=== PATIENT | male | born 1935 | race Caucasian/White ===

== ENCOUNTER 2016-10-06 08:58 | Day surgery (SDC) | payer MEDICARE, OTHER ==
[~2016-10-06 08:58] MED LIST: Lactated Ringers 1,000 ML IV SCH
[2016-10-06] MEDS ORDERED: Albuterol/Ipratropium 3.0-0.5 MG/3 ML Neb Soln NEB ONE (11:12)
[2016-10-06] MEDS ORDERED: Propofol 200 MG/20 ML SDV ONE (11:26)
[2016-10-06] MEDS ORDERED: fentaNYL 100 MCG/2 ML SDV ONE (11:26)
[2016-10-06 13:45] VITALS: BP 145/61
--- NOTE | 2016-10-09 08:18 | OR ---
PREOPERATIVE DIAGNOSIS: Rectal bleeding. POSTOPERATIVE DIAGNOSIS: Anal mass, removed; multiple colonic polyps, removed; large flat cecal polyp, unable to remove due to size. PROCEDURE PROPOSED: Total flexible colonoscopy. PROCEDURE DONE: Total flexible colonoscopy with multiple polypectomies and biopsies. INDICATION: This is an 81-year-old gentleman, who was found to have some bright red blood per rectum and a feeling of something pushing out with bowel movements and he was referred for colonoscopy, apparently being his first one ever. TECHNIQUE: The patient was brought to endoscopy suite, placed in the left lateral decubitus position. He was sedated with propofol per [employer]. The flexible video colonoscope was then passed transanally and under visualization advanced to the cecum. In the cecal area, he was found to have a fairly large lobulated flat polyp that I felt was too large to remove based on my skill set. I did do biopsies of this lesion and it did not appear malignant. He had a couple small polyps in the vicinity that were removed by cold biopsy forceps. The transverse colon was unremarkable. The descending colon was unremarkable. The sigmoid colon revealed moderate diverticulosis and at about 25 cm from anal verge, there was a moderately large polyp removed by hot snare technique and retrieved with suction. I then went back in with the scope and found a mass just inside the dentate line. There was a friable fungating mass, that I was actually able to remove in 3 pieces and felt that a good flush margin was obtained with mucosa and these 3 pieces were suctioned out and submitted for pathologic examination. This likely was the source of his bleeding. However, we need to rule out possible carcinoma within the polyp, so all the specimens were submitted for pathologic examination. IMPRESSION: 1. Anal fungating polyp removed, likely the source of bleeding. 2. Multiple other colonic polyps removed. 3. Large flat sessile type polyp, unable to remove, but biopsied. PLAN: He will be sent a letter with pathology report and all this. We will have to make decision as to when and how to remove the large flat polyp in the cecum, which could possibly be removed by a GI specialist in [place] and thereby avoid surgery. I would like to await the pathology report and all of this before making that decision. I will be sending him a letter with recommendations. SCM: 10/06/2016 12:41:58 MODL: 10/06/2016 19:32:39 /[id number]
--- NOTE | 2016-10-16 10:47 | LETTER ---
10/13/2016 RE: DESIRAE ROSE : 1935 Dear Desirae: I am please to report to that all of the polyps that were found and removed and biopsied were benign. There was no evidence of any precancer changes or colon cancer present. I am hoping that by removing the large polyp in your rectum that your rectal bleeding has stopped. We still have the large flatish polyp in your cecum that has not been removed yet. I would like to see you in the clinic in approximately 1 month, if you would be willing to make an appointment, so we can further discuss your situation and decide what we should do about the larger polyp in the cecum. You can call the clinic and make an appointment at your convenience or sometime in October or November. Respectfully, TYREL
== END 2016-10-06 13:40 | disposition home or self-care (01) ==
LOC: VM.SDS 08:58
PROVIDERS: ATTEND Surgery
DX: D12.0 Benign neoplasm of cecum (principal); D12.3 Benign neoplasm of transverse colon; D12.6 Benign neoplasm of colon, unspecified; D12.9 Benign neoplasm of anus and anal canal; K57.30 Diverticulosis of large intestine without perforation or abscess without bleeding; I13.0 Hypertensive heart and chronic kidney disease with heart failure and stage 1 through stage 4 chronic kidney disease, or unspecified chronic kidney disease; N18.3 Chronic kidney disease, stage 3 (moderate); I50.32 Chronic diastolic (congestive) heart failure; I25.10 Atherosclerotic heart disease of native coronary artery without angina pectoris; Z79.899 Other long term (current) drug therapy; Z88.8 Allergy status to other drugs, medicaments and biological substances; Z96.652 Presence of left artificial knee joint; Z95.5 Presence of coronary angioplasty implant and graft; I73.9 Peripheral vascular disease, unspecified; Z99.81 Dependence on supplemental oxygen; E55.9 Vitamin D deficiency, unspecified; Z90.49 Acquired absence of other specified parts of digestive tract; Z87.891 Personal history of nicotine dependence
CPT/HCPCS: 45380; 94640; J2704; J3010; J7120; 00810; 88305

== ENCOUNTER 2017-03-08 05:55 | Emergency (ER) | payer MEDICARE, OTHER ==
--- NOTE | 2017-03-08 06:06 | EDM.PDOC ---
ED HPI GENERAL MEDICAL PROBLEM - General Chief Complaint: Genitourinary Problem Stated Complaint: Unable to void Time Seen by Provider: 03/08/17 05:56 Source of Information: Reports: Patient, Family, RN, RN Notes Reviewed History Limitations: Reports: No Limitations - History of Present Illness INITIAL COMMENTS - FREE TEXT/NARRATIVE: Patient presents the emergency room at [facility] complaining of urinary retention. The patient states he last urinated about 11 PM last night. The patient states that his bladder feels very full. The patient has a history of BPH and urinary retention. The patient states that he has some bladder discomfort. The patient denies any overt pain. No fever or chills. Patient denies any back pain or flank pain. The patient denies any UTI symptoms. Onset Date: 03/07/17 Onset Time: 23:00 - Related Data Allergies Allergy/AdvReac Type Severity Reaction Status Date / Time atorvastatin calcium AdvReac Leg Cramps Verified 03/08/17 06:06 [From Lipitor] ezetimibe [From Zetia] AdvReac Leg Cramps Verified 03/08/17 06:06 Home Meds: Home Meds ALPRAZolam [Alprazolam] 0.25 mg PO TID PRN 10/27/15 [History] Albuterol Sulfate [Proair Respiclick] 2 puff IH Q4H PRN 10/27/15 [History] Cholecalciferol (Vitamin D3) [Vitamin D] 2,000 units PO DAILY 10/27/15 [History] Docusate Sodium [Colace] 100 mg PO DAILY PRN 10/27/15 [History] Metoprolol Tartrate [Lopressor] 25 mg PO DAILY 10/27/15 [History] Nitroglycerin [Nitrostat] 0.4 mg SL Q5M PRN 10/27/15 [History] Tamsulosin HCl [Flomax] 0.8 mg PO BEDTIME 10/27/15 [History] Tiotropium [Spiriva HandiHaler] 1 cap INH DAILY 10/27/15 [History] Zolpidem [Ambien] 10 mg PO BEDTIME PRN 10/27/15 [History] amLODIPine [Norvasc] 5 mg PO DAILY 10/27/15 [History] Clopidogrel [Plavix] 75 mg PO DAILY 09/28/16 [History] Hydrocodone/Acetaminophen [[place] 5-325] 1 tab PO Q8H PRN 09/28/16 [History] Latanoprost [Xalatan 0.005% Ophth Soln] 2.5 ml EYEBOTH BEDTIME 09/28/16 [History ] PARoxetine [Paxil] 20 mg PO DAILY 09/28/16 [History] Pantoprazole Sodium [Protonix] 20 mg PO DAILY 09/28/16 [History] Past Medical History HEENT History: Reports: Hard of Hearing Cardiovascular History: Reports: CAD, Heart Failure, High Cholesterol, Hypertension, [place], PVD Other Cardiovascular History: BILATERAL CAROTID ARTERY DISEASE. RIGHT BUNDLE BRANCH BLOCK Respiratory History: Reports: COPD, Other (See Below) Other Respiratory History: EMPHYSEMA Gastrointestinal History: Reports: GERD, Hemorrhoids Other Gastrointestinal History: DYSPEPSIARECTAL BLEEDING Genitourinary History: Reports: BPH, Renal Disease Other Genitourinary History: URINARY RETENTION. ACUTE CYSTITIS WITH HEMATURIA. CALCULUS OF KINDNEY Musculoskeletal History: Reports: Back Pain, Chronic, Neck Pain, Chronic Other Musculoskeletal History: DDD-DEGENERATIVE DISC DISEASE, CERVICAL. BURSITIS LEFT SHOULDER. CERVICAL SPINE STENOSIS. CHRONIC LEFT SHOULDER PAIN Neurological History: Reports: None Psychiatric History: Reports: Anxiety, Depression Other Psychiatric History: INSOMNIA. PAIN MEDICATION AGREEMENT SIGNED Endocrine/Metabolic History: Reports: None Other Endocrine/Metabolic History: HYPERGLYCEMIA Hematologic History: Reports: None Other Hematologic History: VIT D DEFICIENCY Immunologic History: Reports: None Oncologic (Cancer) History: Reports: None Dermatologic History: Reports: None - Past Surgical History HEENT Surgical History: Reports: Cataract Surgery Cardiovascular Surgical History: Reports: Coronary Artery Stent Musculoskeletal Surgical History: Reports: Knee Replacement Social & Family History - Tobacco Use Smoking Status *Q: Former Smoker Years of Tobacco use: 60 Packs/Tins Daily: 1 Used Tobacco, but Quit: Yes Month Tobacco Last Used: 10 months ago Second Hand Smoke Exposure: Yes - Alcohol Use Days Per Week of Alcohol Use: 0 Number of Drinks Per Day: 0 Total Drinks Per Week: 0 - Recreational Drug Use Recreational Drug Use: No Drug Use in Last 12 Months: No ED ROS GENERAL - Review of Systems Review Of Systems: See Below Constitutional: Denies: Fever, Chills, Weakness Respiratory: Denies: Shortness of Breath, Cough Cardiovascular: Denies: Chest Pain, Palpitations GI/Abdominal: Denies: Abdominal Pain, Nausea, Vomiting : Reports: Pain, Urinary Retention Skin: Reports: No Symptoms Neurological: Reports: No Symptoms ED EXAM, RENAL/ - Physical Exam Exam: See Below Exam Limited By: No Limitations General Appearance: Alert, No Apparent Distress Respiratory/Chest: No Respiratory Distress, Lungs Clear, Normal Breath Sounds Cardiovascular: Normal Peripheral Pulses, Regular Rate, Rhythm GI/Abdominal: Normal Bowel Sounds, Soft, Non-Tender (Male) Exam: Deferred Neurological: Alert, Oriented Skin Exam: Warm, Dry, Intact, Normal Color, No Rash Course - Orders/Labs/Meds Orders: Active Orders 24 hr Category Date Time Status Bladder Scan [RC] ONETIME Care 03/08/17 06:11 Active Insert [place] Catheter [Insert Urinary Catheter] [OM.PC] Care 03/08/17 06:15 Ordered Q24H Urinary Catheter Assessment [RC] ASDIRECTED Care 03/08/17 06:08 Active PSA-EIA [REF] Stat Lab 03/08/17 06:19 Received Labs: Laboratory Tests 03/08/17 03/08/17 03/08/17 Range/Units 06:19 06:19 06:48 WBC 9.2 (4.0-10.0) x10^3/uL RBC 3.95 L (4.5-6.0) x10^6/uL Hgb 12.3 L (14.0-18.0) g/dL Hct 37.6 L (40.0-52.0) % MCV 95.2 H (78.0-93.0) fL MCH 31.1 (26.0-32.0) pg MCHC 32.7 (32.0-36.0) g/dL RDW Coeff of Kathleen 14.5 (10.0-15.0) % Plt Count 239 D (130-400) x10^3/uL Neut % (Auto) 73.7 (50.0-80.0) % Lymph % (Auto) 13.4 L (25.0-50.0) % [place] % (Auto) 9.8 (2.0-11.0) % Eos % (Auto) 2.9 (0.0-4.0) % Baso % (Auto) 0.2 (0.2-1.2) % Sodium 139 (136-145) mmol/L Potassium 4.1 (3.5-5.1) mmol/L Chloride 104 (98-107) mmol/L Carbon Dioxide 26 (21-32) mmol/L BUN 35 H (7-18) mg/dL Creatinine 2.1 H (0.70-1.30) mg/dL Est Cr Clr Drug Dosing TNP Estimated GFR (MDRD) 30 Glucose 123 H (74-106) mg/dL Calcium 8.7 (8.5-10.1) mg/dL Urine Color Yellow (YELLOW) Urine Appearance Slightly cloudy H (CLEAR) Urine pH 6.0 (5.0-8.0) Ur Specific [place] 1.020 Urine Protein 30 H (NEGATIVE) mg/dL Urine Glucose (UA) Negative (NEGATIVE) mg/dL Urine Ketones Negative (NEGATIVE) mg/dL Urine Occult Blood Trace-lysed H (NEGATIVE) Urine Nitrite Negative (NEGATIVE) Urine Bilirubin Negative (NEGATIVE) Urine Urobilinogen 0.2 (0.2) EU/dL Ur Leukocyte Esterase Trace H (NEGATIVE) Urine RBC 0-5 (NOT SEEN) /HPF Urine WBC 0-5 (NOT SEEN) /HPF Ur Transition Epith Cell Few H (NEGATIVE) /HPF Urine Bacteria Few H (NEGATIVE) /HPF Hyaline Casts Rare H (NEGATIVE) /HPF Urine Mucus Few H (NEGATIVE) /LPF Departure - Departure Time of Disposition: 07:17 Disposition: Home, Self-Care 01 Condition: Good Clinical Impression: Urinary retention due to benign prostatic hyperplasia - Discharge Information Instructions: Acute Urinary Retention, Male Referrals: Dorothy Sheriff MD [Primary Care Provider] - Forms: ED Department Discharge Additional Instructions: 1. Stay well hydrated and rest 2. Blood work and urine studies were mostly normal; no infection 3. Make appointment to see Dr. Sheriff for a follow up and additional evaluation - Problem List Review Problem List Initiated/Reviewed/Updated: Yes - My Orders Last 24 Hours: My Active Orders 03/08/17 06:08 Urinary Catheter Assessment [RC] ASDIRECTED 03/08/17 06:11 Bladder Scan [RC] ONETIME 03/08/17 06:15 Insert [place] Catheter [Insert Urinary Catheter] [OM.PC] Q24H 03/08/17 06:19 PSA-EIA [REF] Stat - Assessment/Plan Last 24 Hours: My Active Orders 03/08/17 06:08 Urinary Catheter Assessment [RC] ASDIRECTED 03/08/17 06:11 Bladder Scan [RC] ONETIME 03/08/17 06:15 Insert [place] Catheter [Insert Urinary Catheter] [OM.PC] Q24H 03/08/17 06:19 PSA-EIA [REF] Stat Assessment:: Urinary retention and chronic kidney disease. The urine does not show any infection other blood work is unremarkable. I think that the patient's symptoms are simply related to BPH. I will recommend that the patient follow with his primary care provider. He may need a reconsult urology if his symptoms persist.
[2017-03-08 06:38] LABS: CHLORIDE,CL 104 mmol/L (98-107); SODIUM,NA 139 mmol/L (136-145)
[2017-03-08 07:36] VITALS: BP 187/83
== END 2017-03-08 07:33 | disposition home or self-care (01) ==
LOC: VM.ED 05:55
DX: N40.1 Benign prostatic hyperplasia with lower urinary tract symptoms (principal); R33.8 Other retention of urine; I25.10 Atherosclerotic heart disease of native coronary artery without angina pectoris; E78.00 Pure hypercholesterolemia, unspecified; I11.0 Hypertensive heart disease with heart failure; I50.9 Heart failure, unspecified; J44.9 Chronic obstructive pulmonary disease, unspecified; K21.9 Gastro-esophageal reflux disease without esophagitis; F41.9 Anxiety disorder, unspecified; F32.9 Major depressive disorder, single episode, unspecified; Z96.659 Presence of unspecified artificial knee joint; Z98.49 Cataract extraction status, unspecified eye; Z88.8 Allergy status to other drugs, medicaments and biological substances; Z79.899 Other long term (current) drug therapy; Z87.891 Personal history of nicotine dependence
CPT/HCPCS: 36415; 51701; 51798; 80048; 81001; 84153; 85025; 99283-GF; 99284